=== PATIENT | female | born 1990 | race American Indian/Alaskan Native ===

== ENCOUNTER 2017-10-08 14:44 | Emergency (ER) | payer OTHER ==
[2017-10-08 14:53] VITALS: BP 133/99
[2017-10-08 15:23] LABS: HCG Qualitative,Urine Negative (Negative)
[2017-10-08] MEDS ORDERED: MOTRIN PO ONE (16:08)
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
== END 2017-10-08 17:53 | disposition home or self-care (01) ==
LOC: ED 14:44
DX: S39.012A Strain of muscle, fascia and tendon of lower back, initial encounter (principal); S13.4XXA Sprain of ligaments of cervical spine, initial encounter; F17.200 Nicotine dependence, unspecified, uncomplicated; V89.2XXA Person injured in unspecified motor-vehicle accident, traffic, initial encounter; Y93.89 Activity, other specified; Y92.89 Other specified places as the place of occurrence of the external cause; Y99.8 Other external cause status
CPT/HCPCS: 72040; 72100; 81025; 99284